=== PATIENT | female | born 2000 | race African-American/Black ===

== ENCOUNTER 2022-05-03 14:59 | Emergency (ER) | payer SELFPAY ==
[2022-05-03 15:01] VITALS: BP 118/75; PULSE 69; RESP 16; TEMP 36.6; O2SAT 98; BMI 35.4
--- NOTE | 2022-05-03 15:03 | USR_ITS ---
PROCEDURE INFORMATION: Exam: US , Transvaginal Exam date and time: 05/03/2022 3:25 PM Age: 21 years old Clinical indication: Lmp or gestational age (in weeks): Unknown; Antepartum complications; Bleeding; Additional info: Vag bleeding, preg LABS AND CLINICAL REPORTS: Last menstrual period start date: Unknown TECHNIQUE: Imaging protocol: Real-time transvaginal obstetrical ultrasound of the maternal pelvis with image documentation. Transvaginal imaging was used for better evaluation of the fetus, adnexa, and/or cervix. COMPARISON: No relevant prior studies available. FINDINGS: Gestation: None seen Uterus: The uterus is retroflexed and measures 7.1 x 4.0 x 5.6 cm. No myometrial mass identified. The endometrial stripe is heterogeneous and thickened measuring up to 19 mm in AP diameter. Minimal fluid in the canal at lower uterine segment/cervix. No visualized gestational sac. Right ovary/adnexa: The right ovary measures 3.6 x 2.5 x 2.2 cm and contains multiple subcentimeter follicles. Normal blood flow identified within the ovary. No adnexal mass. Left ovary/adnexa: The left ovary measures 3.8 x 3.1 x 2.2 cm and contains several subcentimeter follicles. Normal blood flow identified. No adnexal mass. Intraperitoneal space: No free pelvic fluid. US/US OB transvaginal [id number] IMPRESSION: 1. Heterogeneous thickened endometrial stripe with no visualized IUP or ectopic. With a positive test differential includes early IUP too small to visualize versus demise/miscarriage, with occult ectopic not excluded. Correlate clinically and with follow-up ultrasound as needed. 2. Normal ovaries. No adnexal mass or free fluid.
--- NOTE | 2022-05-03 15:15 | W.ED.GENADLT ---
HPI - General Adult General: Chief complaint: Vaginal Bleeding Stated complaint: threatened miscarriage 1st trimester Time Seen by Provider: 05/03/22 15:14 History of Present Illness: Patient is a 21-year-old female G1, P0 with positive test on 03/24/2022 presenting to the emergency room with worsening vaginal bleeding. Patient tells me that she found out she was on . Since then, patient has had intermittent vaginal spotting and bleeding. However over the last few days, patient noticed heavy bleeding with passage of clots. Patient also had irregular cramps. Patient decided come to emergency for evaluation. Of note, patient recently moved here from [place]. Patient denies any fever/chills, flank pain, diarrhea melena/ hematochezia. Patient has no other complaints or new vaginal discharge. Onset: 1 month ago Duration:1 month Location:home Severity:moderate Associated symptoms: Deny chest pain, dyspnea, nausea, rash, palpitations or vomiting Review of Systems Const: Denies: fever(s) or chills Eyes: Denies: change in vision ENMT: Denies: mouth pain Card: Denies: chest pain or palpitations Resp: Denies: dyspnea or non-productive cough GI: Denies: abdominal pain, nausea, vomiting or diarrhea : Reports: other (+vaginal bleeding/pelvic cramps); Denies: dysuria Musc: Denies: extremity pain Skin/Breast: Denies: rash or new lesions Neuro: Denies: weakness in extremities Psych: Reports: other (Normal mood) Cristopher/Lymph: Denies: easy bruising [facility] ED PFSH: Medical History (Updated 05/03/22 @ 15:49 by Beatriz Tapia MD) Anemia Social History (Updated 05/03/22 @ 15:49 by Beatriz Tapia MD) Smoking and tobacco status: never smoked Alcohol intake: never Substance/Drug Use: never Physical Exam Const: COMMON NORMALS: alert HENMT: COMMON NORMALS: atraumatic HEAD & SCALP: atraumatic MOUTH: moist mucous membranes not abnormal Eye: COMMON NORMALS: EOMs intact bilaterally and conjunctivae normal CONJUNCTIVA: Yes conjunctivae normal Neck/C-Spine: COMMON NORMALS: full ROM and supple Resp: COMMON NORMALS: normal respiratory effort and clear to auscultation bilaterally AUSCULTATION: clear to auscultation bilaterally Cardio: COMMON NORMALS: regular rate RATE: regular rate GI: COMMON NORMALS: Soft to palpation and non-tender PALPATION: Yes Soft to palpation OTHER: No focal TTP. NO guarding rebound, guarding, rigidity. No CVA tenderness to percussion. Neg Chandler/Neg McBurney's point tenderness, no suprabupic tenderness to palpation. : OTHER: Pelvic: Exam supervsed by Lida tech: External genitalia wnl. No erythema around cervical os, os open with passage of clots, mild blood in the vaginal vault. No CMT, no adnexal tenderness. No active vaginal bleeding or extravasation Extremity: COMMON NORMALS: full ROM Neuro: SENSORIUM/ORIENTATION: Yes alert MOTOR EXAM: No Abnormal motor strength present and Other motor observations present (no focal motor deficits) Psych: COMMON NORMALS: speech normal SPEECH: Yes normal speech MOOD & AFFECT: Yes euthymic mood Course Vital Signs: Vital signs: Vital Signs Temperature 97.9 F 05/03/22 15:01 Pulse Rate 69 05/03/22 15:01 Respiratory Rate 16 05/03/22 15:01 Blood Pressure 118/75 05/03/22 15:01 Pulse Oximetry 98 05/03/22 15:01 Oxygen Delivery Me thod 05/03/22 15:01 MDM - General Adult Medical Decision Making Patient is a 21-year-old female G1, P0 with positive test on 03/24/2022 presenting to the emergency room with worsening vaginal bleeding passage of clots and irregular cramps. Patient has been having symptoms for the last month now worsening. On exam, patient is hemodynamically stable. Pelvic exam showed blood in the vaginal vault. There appears to be passage of clots to the os. Signs of heavy bleeding or active extravasation. HCG quant is negative. Rho- today, s/p rhogam 300mg. I have given patient follow up with our corrections caseworker to be seen by our outpatient by an OB provider for repeat HCG in 72 hrs. Patient aware of a call from our corrections caseworker to schedule for appointment(s) and verbalizes understanding of the importance of following up. Rx tylenol PRN pain Disposition: Discharge. Patient counseled regarding diagnostic impression, treatment plan. Patient given ED strict return precautions to return for continuation, worsening, or development of new symptoms. Instructed to f/u w/ PCP regarding symptoms today. Patient verbalized understanding of need to follow up in 72 hrs for repeat BHCG. Lab Data : 05/03/22 15:40 05/03/22 15:40 Radiology Impressions Transvaginal US 05/03/22 15:03 IMPRESSION: 1. Heterogeneous thickened endometrial stripe with no visualized IUP or ectopic. With a positive test differential includes early IUP too small to visualize versus demise/miscarriage, with occult ectopic not excluded. Correlate clinically and with follow-up ultrasound as needed. 2. Normal ovaries. No adnexal mass or free fluid. Laboratory Results WBC 7.7 10^3/uL (4.0-10.0) 05/03/22 15:40 RBC 4.05 10^6/uL (4.1-5.3) L 05/03/22 15:40 Hgb 9.5 g/dL (11.5-15.3) L 05/03/22 15:40 Hct 32.2 % (37.0-47.0) L 05/03/22 15:40 MCV 79.5 fl (81-99) L 05/03/22 15:40 MCH 23.5 pg (28.0-34.0) L 05/03/22 15:40 MCHC 29.5 g/dL (30.0-36.0) L 05/03/22 15:40 RDW 15.7 % (12.1-15.1) H 05/03/22 15:40 Plt Count 288 10^3/cmm (130-400) 05/03/22 15:40 MPV 10.8 fL (7.4-10.4) H 05/03/22 15:40 Neut % (Auto) 57.5 % 05/03/22 15:40 Lymph % (Auto) 36.8 % 05/03/22 15:40 Yell % (Auto) 5.1 % 05/03/22 15:40 Eos % (Auto) 0.5 % 05/03/22 15:40 Baso % (Auto) 0.0 % 05/03/22 15:40 Neut # (Auto) 4.41 10^3/uL (1.8-7.7) 05/03/22 15:40 Lymph # (Auto) 2.8 10^3/uL (0.8-4.8) 05/03/22 15:40 Yell # (Auto) 0.4 10^3/uL (0.2-0.9) 05/03/22 15:40 Eos # (Auto) 0.0 10^3/uL (0.0-0.8) 05/03/22 15:40 Baso # (Auto) 0.0 10^3/uL (0.0-0.1) 05/03/22 15:40 Nucleated RBC % (auto) 0 % 05/03/22 15:40 Nucleated RBCs # 0.0 /100WBC 05/03/22 15:40 Sodium 139 mmol/L (136-145) 05/03/22 15:40 Potassium 4.0 mmol/L (3.5-5.1) 05/03/22 15:40 Chloride 103 mmol/L (98-107) 05/03/22 15:40 Carbon Dioxide 26 mmol/L (22-29) 05/03/22 15:40 Anion Gap 14.0 (5-19) 05/03/22 15:40 BUN 11 mg/dL (6-20) 05/03/22 15:40 Creatinine 0.7 mg/dL (0.5-0.9) 05/03/22 15:40 GFR Calculation 125.5 mL/min (90-130) 05/03/22 15:40 Glucose 113 mg/dL (65-115) 05/03/22 15:40 Calculated Osmolality 288 mOsm/kg (285-295) 05/03/22 15:40 Calcium 9.5 mg/dL (8.5-10.5) 05/03/22 15:40 Total Bilirubin 0.2 mg/dL (0.15-1.2) 05/03/22 15:40 AST 24 U/L (0-32) 05/03/22 15:40 ALT 32 U/L (0-33) 05/03/22 15:40 Alkaline Phosphatase 77 U/L (35-105) 05/03/22 15:40 Total Protein 7.8 g/dL (6.6-8.7) 05/03/22 15:40 Albumin 3.9 g/dL (3.5-5.2) 05/03/22 15:40 Globulin 3.9 g/dL (1.3-4.6) 05/03/22 15:40 Lipase 77 U/L (13-60) H 05/03/22 15:40 Ser , Semi-Qnt 0.50 mIU/mL 05/03/22 15:40 Urine Color Rufina (Yellow) 05/03/22 15:19 Urine Appearance Cloudy (CLEAR) 05/03/22 15:19 Urine pH 6.5 (5-7) 05/03/22 15:19 Ur Specific [place] 1.015 (1.005-1.030) 05/03/22 15:19 Urine Protein Trace (Negative) 05/03/22 15:19 Urine Glucose (UA) Norm (Normal) 05/03/22 15:19 Urine Ketones Negative (Negative) 05/03/22 15:19 Urine Blood 3+ (Negative) H 05/03/22 15:19 Urine Nitrate Negative (Negative) 05/03/22 15:19 Urine Bilirubin Neg (Negative) 05/03/22 15:19 Urine Urobilinogen Norm mg/dL (Negative) 05/03/22 15:19 Ur Leukocyte Esterase Negative (Negative) 05/03/22 15:19 Urine RBC Too numerous to cnt /hpf (0-2) H 05/03/22 15:19 Urine WBC 0-4 /hpf (0-5) H 05/03/22 15:19 Ur Squamous Epith Cells 0-4 /hpf (0-5) H 05/03/22 15:19 Amorphous Sediment Not Reportable 05/03/22 15:19 Urine Bacteria Trace /hpf (NONE) 05/03/22 15:19 Blood Type B Negative 05/03/22 15:40 Rho(D) Type Negative 05/03/22 15:40 Imaging Data Other Imaging: Radiologist's impression: [address] [address] Ultrasound Report Signed Patient: Itzel Heredia Unit #: [id number] : 2000 Age/Sex: 21 / F ADM Date: 05/03/22 Loc: ER Room/Bed: Attending Dr: Ordering Provider/Ordering MD: Beatriz Tapia MD Date of Service: 05/03/22 Procedure(s): US OB transvaginal [id number] Accession Number(s): [id number] Report Number: [id number] PROCEDURE INFORMATION: Exam: US , Transvaginal Exam date and time: 05/03/2022 3:25 PM Age: 21 years old Clinical indication: Lmp or gestational age (in weeks): Unknown; Antepartum complications; Bleeding; Additional info: Vag bleeding, preg LABS AND CLINICAL REPORTS: Last menstrual period start date: Unknown TECHNIQUE: Imaging protocol: Real-time transvaginal obstetrical ultrasound of the maternal pelvis with image documentation. Transvaginal imaging was used for better evaluation of the fetus, adnexa, and/or cervix. COMPARISON: No relevant prior studies available. FINDINGS: Gestation:? None seen Uterus: The uterus is retroflexed and measures 7.1 x 4.0 x 5.6 cm. No myometrial mass identified. The endometrial stripe is heterogeneous and thickened measuring up to 19 mm in AP diameter. Minimal fluid in the canal at lower uterine segment/cervix. No visualized gestational sac. Right ovary/adnexa: The right ovary measures 3.6 x 2.5 x 2.2 cm and contains multiple subcentimeter follicles. Normal blood flow identified within the ovary. No adnexal mass. Left ovary/adnexa: The left ovary measures 3.8 x 3.1 x 2.2 cm and contains several subcentimeter follicles. Normal blood flow identified. No adnexal mass. Intraperitoneal space: No free pelvic fluid. US/US OB transvaginal [id number] IMPRESSION: 1. Heterogeneous thickened endometrial stripe with no visualized IUP or ectopic. With a positive test differential includes early IUP too small to visualize versus demise/miscarriage, with occult ectopic not excluded. Correlate clinically and with follow-up ultrasound as needed. 2. Normal ovaries. No adnexal mass or free fluid. ? Dictated By: Rudy Quiros MD Signed By: Rudy Quiros MD Signed Date/Time: 05/03/22 1622 DD/ 1525 Discharge Plan Discharge Patient Disposition: Home Clinical Impression: Vaginal bleeding, Miscarriage, threatened, early Condition: Stable Prescriptions: New acetaminophen 500 mg tablet 500 mg PO Q6H PRN (Reason: pain) 5 Days Qty: 20 0RF Discharge Orders: Discharge ED (Routine); Ordered 05/03/22 Ordered By: Beatriz Tapia Discharge Diet: Advance as tolerated Discharge Activity: Increase activity as tolerated Patient Instructions: Abnormal (Dysfunctional) Uterine Bleeding (ED) Activity Restrictions/Additional Instructions: Our corrections caseworker will have you follow-up with OB in the next few days. You would be expected to have a phone call with our corrections caseworker who will put you on the schedule. You can expect a call from us in the next 2-3 days. If you don't hear from us, call us back in the emergency room at [phone]. Come back if you have any fever/chills, nausea/vomiting, new vaginal discharge or any additional heavy bleeding. Coding Level of Care Code ED Rackman for Chg Fwd Exam Comprehensive
[2022-05-03 16:01] LABS: Eosinophils % 0.5 %; Hematocrit 32.2 % (37.0-47.0); Hemoglobin 9.5 g/dL (11.5-15.3); Lymphocytes # 2.8 10^3/uL (0.8-4.8); Lymphocytes % 36.8 %; Mean Corpuscular HGB Conc 29.5 g/dL (30.0-36.0); Mean Corpuscular Hemoglobin 23.5 pg (28.0-34.0); Mean Corpuscular Volume 79.5 fl (81-99); Mean Platelet Volume 10.8 fL (7.4-10.4); Monocytes # 0.4 10^3/uL (0.2-0.9); Monocytes % 5.1 %; Neutrophils # 4.41 10^3/uL (1.8-7.7); Neutrophils % 57.5 %; Nucleated Red Blood Cells % 0 %; Platelet Count 288 10^3/cmm (130-400); Red Blood Count 4.05 10^6/uL (4.1-5.3); Red Cell Distribution Width 15.7 % (12.1-15.1); White Blood Count 7.7 10^3/uL (4.0-10.0)
[2022-05-03 16:05] LABS: Protein Urine Trace (Negative); Specific Gravity, Urine 1.015 (1.005-1.030); Urine Appearance Cloudy (CLEAR); Urine Color Amber (Yellow); pH Urine 6.5 (5-7)
[2022-05-03 16:06] LABS: Add Urine Culture? Yes; Add Urine Microscopic? YES; Bacteria Urine TRACE /hpf; Bilirubin Urine Neg (Negative); Blood Urine 3+ (Negative); Glucose Urine UA Norm (Normal); Ketones Urine Negative (Negative); Leukocyte Esterase Urine Negative (Negative); Nitrate Urine Negative (Negative); RBC Urine TOO NUMEROUS TO CNT /hpf (0-2); Squamous Epithelial Cell Urine 0-4 /hpf (0-5); Urobilinogen Urine Norm (Negative); WBC Urine 0-4 /hpf (0-5)
[2022-05-03 16:31] LABS: Alanine Aminotransferase 32 U/L (0-33); Albumin Level 3.9 g/dL (3.5-5.2); Alkaline Phosphatase 77 U/L (35-105); Aspartate Amino Transferase 24 U/L (0-32); Blood Urea Nitrogen 11 mg/dL (6-20); Calcium 9.5 mg/dL (8.5-10.5); Carbon Dioxide 26 mmol/L (22-29); Chloride 103 mmol/L (98-107); Globulin 3.9 g/dL (1.3-4.6); Glomerular Filtration Rate 125.5 mL/min (90-130); Glucose 113 mg/dL (65-115); Lipase 77 U/L (13-60); Osmolality Calculated 288 mOsm/kg (285-295); Sodium 139 mmol/L (136-145); Total Bilirubin 0.2 mg/dL (0.15-1.2); Total Protein 7.8 g/dL (6.6-8.7)
[2022-05-03 18:18] VITALS: BP 137/98; PULSE 82; RESP 21; O2SAT 98
--- NOTE | 2022-05-05 13:34 | DCPLANNER ---
Addendum entered by Belen Avila 08/13/22 11:14: Patient had a follow up appointment scheduled with [facility] - patient did not attend appointment. Addendum entered by Belen Avila 05/08/22 14:08: Patient has a follow up appointment scheduled for Saturday, June 04, 2022 at 11:00 with Carey Fernandes with [facility]. Clinic will call patient with appointment information. Original Note: it disaster recovery manager had message to schedule a follow up appointment for patient with [facility]. it disaster recovery manager sent patients information to the front office staff at [facility]. Patients information will be printed and reviewed. Clinic will call patient with appointment information.
== END 2022-05-03 18:40 | disposition home or self-care (01) ==
PROVIDERS: Emergency Provider Emergency Medicine
DX: O20.0 Threatened abortion (principal); Z3A.01 Less than 8 weeks gestation of pregnancy
CPT/HCPCS: 76817; 80053; 81001; 83690; 84702; 85025; 86850; 86900; 87086; 90384; 99284

== ENCOUNTER 2022-05-04 13:19 | Emergency (ER) | payer SELFPAY ==
[2022-05-04 13:26] VITALS: PULSE 65; RESP 18; TEMP 36.7; O2SAT 99; BMI 36.6
--- NOTE | 2022-05-04 13:49 | W.ED.ALLEREA ---
HPI - Allergic Reaction General: Chief complaint: Allergic Reaction Stated complaint: hives and rash on face Time Seen by Provider: 05/04/22 13:44 Source: patient Mode of arrival: ambulatory Limitations: no limitations History of Present Illness: HPI narrative: 21-year-old female presents to the ER today for a rash on her face and chest x24 hours. Patient reports she was seen here yesterday for a miscarriage and was given a RhoGAM injection. Patient was concerned when she noticed a rash last night and this morning on her. Patient reports it does itch. Patient does admit to being exposed to poison nimisha/poison oak in the last several days. Her significant other also has a rash on him that was likely caused by poison nimisha. Patient reports the rash on her face forms a line across her forehead. They have not tried anything for the symptoms at this time. Review of Systems General: Reports: 10 or more systems reviewed and unremarkable except in HPI and below PFSH ED PFSH: Medical History Anemia Social History Smoking and tobacco status: never smoked Alcohol intake: never Physical Exam Const: COMMON NORMALS: no acute distress, average body habitus, patient oriented x3, no limitations, healthy appearing, alert and well nourished HENMT: OTHER: Linear, maculopapular/vesicular rash noted across patient's forehead. Resp: COMMON NORMALS: normal respiratory effort EFFORT & INSPECTION: Yes able to speak in complete sentences Cardio: COMMON NORMALS: regular rate and regular rhythm RATE: regular rate RHYTHM: regular rhythm Extremity: COMMON NORMALS: normal to inspection and full ROM Neuro: COMMON NORMALS: patient oriented x3 SENSORIUM/ORIENTATION: Yes alert Psych: COMMON NORMALS: mental status grossly normal, Normal thought process present and cooperative THOUGHT PROCESS: Normal thought process present Skin: NARRATIVE SKIN EXAM: Linear, maculopapular/vesicular rash noted across patient's forehead. Rash also noted on patient's chest that is maculopapular and 1 patch. Rashes appear consistent with a contact dermatitis. Course ED course: 21-year-old female presents to the ER today for a rash on her chest and face x24 hours. Patient reports she first noticed it yesterday. Patient reports she did get a RhoGAM shot for miscarriage yesterday for she noticed it. Patient also admits to being outside and around possible poison nimisha and poison oak. Patient's significant other also has a rash similar and they thought it was due to poison nimisha. Patient reports it is itchy and she has not tried any thing for it at this time. Rash appears consistent with a contact dermatitis. We will do Kenalog in ER today. Vital Signs: Vital signs: Vital Signs Temperature 98.1 F 05/04/22 13:26 Pulse Rate 65 05/04/22 13:26 Respiratory Rate 18 05/04/22 13:26 Pulse Oximetry 99 05/04/22 13:26 Oxygen Delivery Me thod 05/04/22 13:26 MDM - Allergic Reaction Medical Decision Making 21-year-old female presents to the ER today for a rash on her chest and face x24 hours. Patient reports she first noticed it yesterday. Patient reports she did get a RhoGAM shot for miscarriage yesterday for she noticed it. Patient also admits to being outside and around possible poison nimisha and poison oak. Patient's significant other also has a rash similar and they thought it was due to poison nimisha. Patient reports it is itchy and she has not tried any thing for it at this time. Rash appears consistent with a contact dermatitis versus an allergic reaction to RhoGAM. We will do Kenalog in ER today. Recommended patient get Benadryl for itching at home. Use [id number] topical hydrocortisone cream or calamine lotion. Use hydrocortisone cream sparingly on the face. Follow-up with PCP in 1 week if no improvement. Return to the ER with any new or worsening symptoms. Patient verbalized understanding and was in agreement with the treatment plan. Critical Care Time Critical Care Time: Critical Care Time: No Discharge Plan Discharge Patient Disposition: Home Clinical Impression: Contact dermatitis Qualifiers: Contact dermatitis type: irritant Contact dermatitis trigger: non-food plants Qualified Code(s): L24.7 - Irritant contact dermatitis due to plants, except food Condition: Stable Prescriptions: No Action acetaminophen 500 mg tablet 500 mg PO Q6H PRN (Reason: pain) 5 Days Qty: 20 0RF Discharge Orders: Discharge ED (Routine); Ordered 05/04/22 Ordered By: Yin Olmos Diet: Usual diet Discharge Activity: Resume usual activity Patient Instructions: Opioid Safety Activity Restrictions/Additional Instructions: Apply topical hydrocortisone or calamine lotion for itching. Follow-up with PCP in 1 week if no improvement. Return to the ER if new or worsening symptoms. Coding Level of Care Code ED Cathodic Protection Technician for Alejandra Camacho
[2022-05-04] MEDS: triamcinolone 40 mg/mL SDV IM (14:37)
== END 2022-05-04 14:44 | disposition home or self-care (01) ==
PROVIDERS: Emergency Provider Physician Assistant
DX: L24.7 Irritant contact dermatitis due to plants, except food (principal)
CPT/HCPCS: 96372; 99284; J3301

== ENCOUNTER 2022-08-13 13:52 | Emergency (ER) | payer SELFPAY ==
[2022-08-13 14:41] VITALS: BP 130/67; PULSE 80; RESP 14; TEMP 36.8; O2SAT 100
[2022-08-13 15:22] VITALS: BP 105/65; PULSE 83; RESP 15; TEMP 36.4; O2SAT 100
[2022-08-13 15:44] LABS: Add Urine Microscopic? NO; Charge for UA Resulting for Rev
--- NOTE | 2022-08-13 15:45 | ED_ITS ---
HPI - General Adult General: Chief complaint: General Medical Stated complaint: Thinks she might be Time Seen by Provider: 08/13/22 15:44 History of Present Illness: 22-year-old female comes in today for complaints of no period for the last 2 months. Patient reports breast tenderness and nausea. Patient appears nontoxic. Patient reports no chronic medical problems. Patient reported normal periods up until 2 months ago. Review of Systems : Reports: amenorrhea PFSH ED PFSH: Medical History Anemia Family History Denies family history of Colon cancer Ovarian cancer Diabetes Heart disease Hyperlipidemia Breast cancer Family history of thyroid problem Hypertension Uterine cancer Stroke Physical Exam Const: COMMON NORMALS: alert HENMT: COMMON NORMALS: normocephalic HEAD & SCALP: normocephalic Resp: COMMON NORMALS: normal respiratory effort Cardio: COMMON NORMALS: regular rate RATE: regular rate Neuro: SENSORIUM/ORIENTATION: Yes alert Course Vital Signs: Vital signs: Vital Signs Temperature 97.6 F 08/13/22 15:22 Pulse Rate 83 08/13/22 15:22 Respiratory Rate 15 08/13/22 15:22 Blood Pressure 105/65 08/13/22 15:22 Pulse Oximetry 100 08/13/22 15:22 Oxygen Delivery Me thod 08/13/22 15:22 MDM - General Adult Medical Decision Making 22-year-old female comes in today for concerns of . Patient had not had a period for the last 2 months. Exam is unremarkable. Vital signs are normal. Differential diagnosis includes but not limited to secondary amenorrhea, PCOS, urinary tract infection. Urinalysis and hCG were both unremarkable. No signs of were noted at this time. Recommend patient follow-up with primary care for further instruction and evaluation. Lab Data Laboratory Results Urine Color Yellow (Yellow) 08/13/22 Unknown Urine Appearance Clear (CLEAR) 08/13/22 Unknown Urine pH 8 (5-7) H 08/13/22 Unknown Ur Specific [place] 1.010 (1.005-1.030) 08/13/22 Unknown Urine Protein Neg (Negative) 08/13/22 Unknown Urine Glucose (UA) Norm (Normal) 08/13/22 Unknown Urine Ketones Negative (Negative) 08/13/22 Unknown Urine Blood Neg (Negative) 08/13/22 Unknown Urine Nitrate Negative (Negative) 08/13/22 Unknown Urine Bilirubin Neg (Negative) 08/13/22 Unknown Prot Sulfosalicylic Acd Negative (Negative) 08/13/22 Unknown Urine Urobilinogen Norm mg/dL (Negative) 08/13/22 Unknown Ur Leukocyte Esterase Negative (Negative) 08/13/22 Unknown Urine HCG, Qual Negative (Negative) 08/13/22 Unknown Discharge Plan Discharge Patient Disposition: Home Clinical Impression: Secondary physiologic amenorrhea Condition: Stable Prescriptions: No Action amoxicillin-pot clavulanate 875-125 mg tablet 1 tab PO BID 10 Days Qty: 20 0RF fluticasone propionate [Children's Flonase Allergy Rlf] 50 mcg/actuation spray,suspension 2 spray intranasal DAILY Qty: 16 0RF Rx Instructions: administer into each nostril cetirizine [Zyrtec] 10 mg tablet 10 mg PO DAILY Qty: 30 0RF Discharge Orders: Discharge ED (Routine); Ordered 08/13/22 Ordered By: Magan Cavazos Activity Restrictions/Additional Instructions: Follow-up with primary care for further evaluation and treatment. Return to ER for severe pain, fever greater than 100.4, abnormal vaginal discharge, or new concerns. Coding Level of Care Code ED Laboratory Animal Care Veterinarian for Alejandra Camacho
[2022-08-13 16:06] LABS: Bilirubin Urine Neg (Negative); Blood Urine Neg (Negative); Glucose Urine UA Norm (Normal); Ketones Urine Negative (Negative); Leukocyte Esterase Urine Negative (Negative); Nitrate Urine Negative (Negative); Protein Urine Neg (Negative); Sulfosalicylic Acid Urine Negative (Negative); Urine Appearance Clear (CLEAR); Urine Color Yellow (Yellow); Urobilinogen Urine Norm (Negative); pH Urine 8 (5-7)
== END 2022-08-13 17:15 | disposition home or self-care (01) ==
PROVIDERS: Emergency Provider Nurse Practitioner Family
DX: N91.1 Secondary amenorrhea (principal); Z32.02 Encounter for pregnancy test, result negative
CPT/HCPCS: 81003; 81025; 99282

== ENCOUNTER → 2022-08-20 10:30 | Outpatient (BNVA) | payer SELFPAY | PROVIDERS: Visit Provider Nurse Practitioner Women's Health | DX: Z00.00 Encounter for general adult medical examination without abnormal findings (principal); N91.1 Secondary amenorrhea | CPT/HCPCS: 81000; 81025; 84702 ==

== ENCOUNTER → 2022-09-03 09:00 | Outpatient (BNVA) | payer SELFPAY | PROVIDERS: Visit Provider Nurse Practitioner Women's Health | DX: Z01.411 Encounter for gynecological examination (general) (routine) with abnormal findings (principal); N91.1 Secondary amenorrhea | CPT/HCPCS: 82670; 82728; 83001; 83498; 83540; 84146; 84439; 84443; 85025 ==

== ENCOUNTER 2022-10-04 15:34 | Emergency (ER) | payer SELFPAY ==
[2022-10-04 15:36] VITALS: BP 134/90; PULSE 84; RESP 16; TEMP 36.6; O2SAT 98
--- NOTE | 2022-10-04 16:00 | W.ED.BACK ---
HPI - Back Pain/Injury General: Chief Complaint: Back Pain/Injury Stated Complaint: back injury Time Seen by Provider: 10/04/22 15:46 Source: patient Mode of arrival: wheelchair Limitations: no limitations History of Present Illness: Patient is a 22-year-old female presents to ED today for evaluation of back pain. Patient states she initially hurt her back earlier this week on Thursday after lifting a heavy patient at work (reports she heard a pop ). She states she was seen at a [place] facility/clinic because of the Worker's Comp. injury but states I am not sure if they even filed it . She states she was told to treat symptoms conservatively which she has been doing with oral ibuprofen without much relief. She states she was told to go back to work and is having trouble at work secondary to pain. States pain sometimes radiates down her right leg. Denies numbness, tingling, loss of sensation. No color or temperature changes. Denies saddle anesthesia or bowel or bladder dysfunction MD elicited complaint: back pain and back injury Pertinent past history: recent trauma Onset (ago): day(s) Timing: constant Severity: moderate Similar Symptoms Previously: No Location: lumbar spine and right lower back Radiation: right leg below the knee Exacerbating factors: movement, walking and lifting Relieving factors: none Context: while lifting Associated symptoms: Reports no associated symptoms; Deny abdominal pain, chills, dysuria, fatigue, fever(s) or hematuria Treatments prior to arrival: NSAIDS Work related injury: Yes Review of Systems Const: Denies: fever(s), chills, body aches, fatigue or malaise Card: Denies: chest pain Resp: Denies: dyspnea GI: Denies: abdominal pain : Denies: flank pain, dysuria or hematuria Musc: Reports: back pain; Denies: neck pain, extremity pain, extremity swelling, joint pain or joint swelling Skin/Breast: Denies: rash Neuro: Denies: headache(s), numbness in extremities, weakness in extremities or sensory changes PFSH ED PFSH: Medical History Anemia Family History Denies family history of Colon cancer Ovarian cancer Diabetes Heart disease Hyperlipidemia Breast cancer Family history of thyroid problem Hypertension Uterine cancer Stroke Physical Exam Const: COMMON NORMALS: no acute distress, patient oriented x3, no limitations and alert NUTRITIONAL APPEARANCE: obese ORIENTATION/CONSCIOUSNESS: Yes awake, Yes oriented to person, Yes oriented to place and Yes oriented to time HENMT: COMMON NORMALS: normocephalic and atraumatic HEAD & SCALP: normal to inspection, normocephalic and atraumatic : COMMON NORMALS: Yes no CVA tenderness BLADDER/KIDNEY EXAM: Yes no CVA tenderness Back/Pelvis: COMMON NORMALS: no CVA tenderness THORACIC SPINE/UPPER BACK: Yes normal to inspection, Yes thoracic ROM normal, No thoracic spinal tenderness, No paraspinal muscle tenderness and No paraspinal muscle spasm LUMBAR SPINE/LOWER BACK: Yes ROM limited, Yes pain with ROM, Yes lumbar spinal tenderness, Yes paraspinal muscle tenderness, No paraspinal muscle spasm, No mass present and Yes straight leg raise negative bilaterally PELVIS: Yes buttocks normal SACROILIAC JOINTS: Yes SI joints normal SACRUM: no tenderness COCCYX: no tenderness Extremity: COMMON NORMALS: normal to inspection, full ROM, capillary refill normal, no joint enlargement, no clubbing, cyanosis or edema, no calf tenderness and no pedal edema GENERAL: Yes normal exam except as noted Neuro: COMMON NORMALS: patient oriented x3, moves all extremities, no focal motor deficits and no sensory deficits noted SENSORIUM/ORIENTATION: Yes alert, Yes oriented to person, Yes oriented to place and Yes oriented to time MOTOR EXAM: 5/5 motor strength present throughout Skin: COMMON NORMALS: no rashes or lesions noted GENERAL SKIN EXAM: no rashes or lesions noted Course Vital Signs: Vital signs: Vital Signs Temperature 97.9 F 10/04/22 15:36 Pulse Rate 84 10/04/22 15:36 Respiratory Rate 16 10/04/22 15:36 Blood Pressure 134/90 10/04/22 15:36 Pulse Oximetry 98 10/04/22 15:36 Oxygen Delivery Me thod 10/04/22 15:36 MDM - Back Pain/Injury Medical Decision Making Patient states her back pain feels better. She has no red flags on history or physical exam. Recommend she follow-up with the clinic that started her Worker's Comp. paperwork. Labs Radiology Impressions Lumbar Spine X-Ray 10/04/22 16:14 IMPRESSION: No fracture or acute osseous abnormality. Discharge Plan Discharge Patient Disposition: Home Clinical Impression: Low back strain Qualifiers: Encounter type: initial encounter Qualified Code(s): S39.012A - Strain of muscle, fascia and tendon of lower back, initial encounter Condition: Stable Prescriptions: New methocarbamol 500 mg tablet 1,000 mg PO Q8H Qty: 30 0RF Medrol ([place]) 4 mg tablets,dose pack See Rx Instructions .ROUTE .COMPLEX Qty: 21 0RF Rx Instructions: orally per package directions No Action medroxyprogesterone 10 mg tablet 10 mg PO DAILY Qty: 10 0RF letrozole 2.5 mg tablet 2.5 mg PO DAILY 5 Days Qty: 5 0RF Rx Instructions: begin between days 2 and 7 of menstrual cycle Discharge Orders: Discharge ED (Routine); Ordered 10/04/22 Ordered By: Pamela Mathis Activity Restrictions/Additional Instructions: As we discussed please follow-up with the [facility] clinic this week. Stand Alone Forms: Work/School Release Coding Level of Care Code ED Cash Reconciliation Specialist for Alejandra Camacho
--- NOTE | 2022-10-04 16:11 | PC.NURSE ---
Discharge entered on 1607 was entered on the wrong patient, not meant for this patient.
--- NOTE | 2022-10-04 16:14 | XRR_ITS ---
PROCEDURE INFORMATION: Exam: XR Lumbosacral Spine Exam date and time: 10/04/2022 4:29 PM Age: 22 years old Clinical indication: Injury or trauma; Fall; Blunt trauma (contusions or hematomas) TECHNIQUE: Imaging protocol: Radiologic exam of the lumbosacral spine. Views: 2 or 3 views. COMPARISON: US OB <=14 wk fetus w transvag 05/03/2022 3:25 PM FINDINGS: Bones/joints: AP view demonstrates minimal scoliosis. Very minimal retrolisthesis of L5 on S1 on the lateral view, which may be positional. Lumbar vertebral body heights appear maintained, as do disc spaces. No fracture or compression deformity. Visualized sacrum appears unremarkable.. Soft tissues: Unremarkable. XR/XR lumbar spine 2-3V* [id number] IMPRESSION: No fracture or acute osseous abnormality.
[2022-10-04] MEDS: orphenadrine 30 mg/mL Inj 2 mL 60 MG IM (16:25)
[2022-10-04] MEDS: dexamethasone 10 mg/mL INJ 8 MG IM (16:26)
[2022-10-04 17:12] VITALS: BP 128/76; PULSE 88; RESP 16; O2SAT 99
== END 2022-10-04 17:12 | disposition home or self-care (01) ==
PROVIDERS: Emergency Provider Physician Assistant
DX: S39.012A Strain of muscle, fascia and tendon of lower back, initial encounter (principal); X50.0XXA Overexertion from strenuous movement or load, initial encounter; Y93.F2 Activity, caregiving, lifting; Y99.0 Civilian activity done for income or pay
CPT/HCPCS: 72100; 96372; 99284; J1100; J2360

== ENCOUNTER → 2023-08-21 10:57 | Outpatient (BNVA) | payer SELFPAY | PROVIDERS: Visit Provider Obstetrics & Gynecology | DX: N92.6 Irregular menstruation, unspecified (principal) | CPT/HCPCS: 84702 ==

== ENCOUNTER 2025-05-06 13:22 | Emergency (ER) | payer SELFPAY ==
[2025-05-06 13:26] VITALS: BP 166/68; PULSE 75; RESP 20; TEMP 36.7; O2SAT 94; BMI 41.6
--- NOTE | 2025-05-06 15:58 | ED_ITS ---
HPI - Abdominal Pain 2 General: Chief Complaint: Abdominal Pain Stated Complaint: N / Abd pain Time Seen by Provider: 05/06/25 15:37 History of Present Illness: 24-year-old female presents emergency ro om complaining of abdominal pain she has recently seen at another outside hospital thought to have a pneumonia/bronchitis and was started on doxycycline. Her symptoms are worse after she takes a doxycycline and then begin to improve. She do not especially bad if she does not eat with the doxycycline. Associated Symptoms: Denies chills, dysuria and fever(s) Related Data Home Medications ?Medication ?Instructions ?Recorded ?Confirmed doxycycline hyclate 100 mg tablet 100 mg PO BID 05/06/25 promethazine-DM 6.25 mg-15 mg/5 mL 5 ml PO Q6H PRN Cou gh 05/06/25 05/06/25 oral syrup Previous Rx's ?Medication ?Instructions ?Recorded levofloxacin 750 mg tablet 750 mg PO DAILY 7 days #7 t abs 05/06/25 Allergies Allergy/AdvReac Type Severity Reaction Status Date / Time No Known Allergies Allergy Verified 05/06/25 13:30 Review of Systems 2 Const: Denies: fever(s) or chills Card: Denies: chest pain Resp: Denies: dyspnea GI: Denies: abdominal pain : Denies: dysuria, urinary frequency or urinary urgency Musc: Denies: neck pain or back pain Skin/Breast: Denies: rash PFSH ED 2 PFSH: Medical History Anemia Family History Denies family history of Colon cancer Ovarian cancer Diabetes Heart disease Hyperlipidemia Breast cancer Family history of thyroid problem Hypertension Uterine cancer Stroke Social History Substance/Drug Use: never Physical Exam 2 Const: GENERAL APPEARANCE: cooperative ORIENTATION/CONSCIOUSNESS: Yes awake, Yes oriented to person, Yes oriented to place and Yes oriented to time HENMT: COMMON NORMALS: normocephalic, atraumatic and hearing grossly normal bilaterally HEAD & SCALP: normocephalic and atraumatic Resp: COMMON NORMALS: normal respiratory effort, No retractions, No use of accessory muscles and clear to auscultation bilaterally AUSCULTATION: clear to auscultation bilaterally Cardio: COMMON NORMALS: regular rate, regular rhythm and No murmurs present (Cardio) RATE: regular rate RHYTHM: regular rhythm GI: COMMON NORMALS: Soft to palpation and No hepatosplenomegaly present A USCULTATION: Yes normoactive bowel sounds PALPATION: Yes Soft to palpation, No Tenderness to palpation present (GI), No Guarding due to palpation present (GI) and Yes No hepatosplenomegaly present Extremity: COMMON NORMALS: normal to inspection, capillary refill normal, no clubbing, cyanosis or edema, no calf tenderness and no pedal edema Neuro: SENSORIUM/ORIENTATION: Yes oriented to person, Yes oriented to place and Yes oriented to time Skin: COMMON NORMALS: no rashes or lesions noted GENERAL SKIN EXAM: no rashes or lesions noted Course 2 Vital Signs: Vital signs: Vital Signs Temperature 98.0 F 05/06/25 13:26 Pulse Rate 72 05/06/25 17:26 Respiratory Rate 18 05/06/25 17:26 Blood Pressure 130/75 05/06/25 17:26 Pulse Oximetry 100 05/06/25 17:26 Oxygen Delivery Me thod Room Air 05/06/25 13:26 MDM - Abdominal Pain Medical Decision Making Exam labs essentially normal. White count slightly elevated consistent with her known diagnosis. Suspect her symptoms are largely due to side effects from the doxycycline GI irritation. Discussed this with her. She is actually feeling much better now we will discharge her home with levofloxacin and have her stop the doxycycline. Follow-up with her primary care doctor. Medical Records I reviewed the patient's medical records. Lab Data I reviewed the patient's lab results. 05/06/25 15:51 05/06/25 15:51 Labs/Radiology: Laboratory Results WBC 11.95 10^3/uL (3.29-11.43) H 05/06/25 15:51 RBC 4.40 10^6/uL (3.85-5.65) 05/06/25 15:51 Hgb 10.70 g/dL (11.27-16.99) L 05/06/25 15:51 Hct 35.3 % (36-47) L 05/06/25 15:51 MCV 80.2 fl (85-98) L 05/06/25 15:51 MCH 24.3 pg (27-33) L 05/06/25 15:51 MCHC 30.3 g/dL (30-55) 05/06/25 15:51 RDW 15.2 % (12.1-15.1) H 05/06/25 15:51 Plt Count 285 10^3/cmm (157-399) 05/06/25 15:51 MPV 10.6 fL (7.4-10.4) H 05/06/25 15:51 Neut % (Auto) 65.9 % 05/06/25 15:51 Lymph % (Auto) 26.4 % 05/06/25 15:51 [place] % (Auto) 6.3 % 05/06/25 15:51 Eos % (Auto) 0.8 % 05/06/25 15:51 Baso % (Auto) 0.3 % 05/06/25 15:51 Neut # (Auto) 7.89 10^3/uL (1.8-7.7) H 05/06/25 15:51 Lymph # (Auto) 3.2 10^3/uL (0.8-4.8) 05/06/25 15:51 [place] # (Auto) 0.8 10^3/uL (0.2-0.9) 05/06/25 15:51 Eos # (Auto) 0.1 10^3/uL (0.0-0.8) 05/06/25 15:51 Baso # (Auto) 0.0 10^3/uL (0.0-0.1) 05/06/25 15:51 Nucleated RBC % (auto) 0 % 05/06/25 15:51 Nucleated RBCs # 0.0 /100WBC 05/06/25 15:51 Sodium 138 mmol/L (136-145) 05/06/25 15:51 Potassium 3.8 mmol/L (3.5-5.1) 05/06/25 15:51 Chloride 103 mmol/L (98-107) 05/06/25 15:51 Carbon Dioxide 24 mmol/L (22-29) 05/06/25 15:51 Anion Gap 14.8 (5-19) 05/06/25 15:51 BUN 11 mg/dL (6-20) 05/06/25 15:51 Creatinine 0.5 mg/dL (0.5-0.9) 05/06/25 15:51 GFR Calculation 180.5 mL/min (90-130) H 05/06/25 15:51 Glucose 107 mg/dL (65-115) 05/06/25 15:51 Calculated Osmolality 286 mOsm/kg (285-295) 05/06/25 15:51 Calcium 9.3 mg/dL (8.5-10.5) 05/06/25 15:51 Total Bilirubin 0.2 mg/dL (0.15-1.2) 05/06/25 15:51 AST 14 U/L (0-32) 05/06/25 15:51 ALT 20 U/L (0-33) 05/06/25 15:51 Alkaline Phosphatase 79 U/L (35-105) 05/06/25 15:51 Total Protein 7.9 g/dL (6.6-8.7) 05/06/25 15:51 Albumin 4.1 g/dL (3.5-5.2) 05/06/25 15:51 Globulin 3.8 g/dL (1.3-4.6) 05/06/25 15:51 Lipase 45 U/L (13-60) 05/06/25 15:51 Urine Color Yellow (Yellow) 05/06/25 16:49 Urine Appearance Clear (CLEAR) 05/06/25 16:49 Urine pH 6.0 (5-7) 05/06/25 16:49 Ur Specific [place] 1.022 (1.005-1.030) 05/06/25 16:49 Urine Protein Negative (Negative) 05/06/25 16:49 Urine Glucose (UA) Negative (Normal) 05/06/25 16:49 Urine Ketones Negative (Negative) 05/06/25 16:49 Urine Blood Negative (Negative) 05/06/25 16:49 Urine Nitrate Negative (Negative) 05/06/25 16:49 Urine Bilirubin Negative (Negative) 05/06/25 16:49 Urine Urobilinogen 1.0 mg/dL (Negative) 05/06/25 16:49 Ur Leukocyte Esterase Negative (Negative) 05/06/25 16:49 Urine RBC 0-2 /hpf (0-2) 05/06/25 16:49 Urine WBC 0-5 /hpf (0-5) 05/06/25 16:49 Ur Squamous Epith Cells 6-10 /hpf (0-5) 05/06/25 16:49 Amorphous Sediment Not Reportable 05/06/25 16:49 Urine Bacteria None seen /hpf (NONE) 05/06/25 16:49 Hyaline Casts 0.40 /lpf 05/06/25 16:49 All radiology interpretation(s) finalized by discharge Discharge Plan Discharge Patient Disposition: Home Clinical Impression: Bronchitis Condition: Stable Prescriptions: New levofloxacin 750 mg tablet 750 mg PO DAILY 7 Days Qty: 7 0RF No Action promethazine-DM 6.25-15 mg/5 mL syrup 5 ml PO Q6H PRN (Reason: Cough) doxycycline hyclate 100 mg tablet 100 mg PO BID Discharge Orders: Discharge ED (Routine); Ordered 05/06/25 Ordered By: Bharath Jolley Discharge Diet: Usual diet Discharge Activity: Resume usual activity Patient Instructions: Opioid Safety, Pain Management, Patient Portal & [place] Instructions Activity Restrictions/Additional Instructions: Thank you for choosing [facility] for your healthcare needs today. It is very important that you follow up as instructed or that you return to the Emergency Department should you have concerns or if your condition changes or worsens in any way. Emergency department visits are focused on emergent conditions, in some cases you may require further evaluation on an outpatient basis. You were seen in the emergency room with concerns about stomach upset. Your laboratory tests are normal including your lipase. Recommend that you stop the doxycycline and instead take levofloxacin 750 once a day for 7 days. Follow-up with your primary care doctor if not improving (Please note that included in your discharge packet is information concerning opioid safety and pain management. This information is given to all patients were discharged from the ER regardless of their discharge diagnosis or the medicines they usually take or are prescribed.) Print Language: Slovenian Coding Level of Care Code ED Residential Real Estate Agent for Alejandra Camacho
[2025-05-06 16:08] LABS: Hematocrit 35.3 % (36-47); Hemoglobin 10.70 g/dL (11.27-16.99); Mean Corpuscular HGB Conc 30.3 g/dL (30-55); Mean Corpuscular Hemoglobin 24.3 pg (27-33); Mean Corpuscular Volume 80.2 fl (85-98); Nucleated Red Blood Cells % 0 %; Platelet Count 285 10^3/cmm (157-399); Red Blood Count 4.40 10^6/uL (3.85-5.65); White Blood Count 11.95 10^3/uL (3.29-11.43)
[2025-05-06 16:23] LABS: Alanine Aminotransferase 20 U/L (0-33); Albumin Level 4.1 g/dL (3.5-5.2); Alkaline Phosphatase 79 U/L (35-105); Anion Gap 14.8 (5-19); Aspartate Amino Transferase 14 U/L (0-32); Blood Urea Nitrogen 11 mg/dL (6-20); Calcium 9.3 mg/dL (8.5-10.5); Carbon Dioxide 24 mmol/L (22-29); Chloride 103 mmol/L (98-107); Creatinine Clr Calc Pharmacy 199.3922; Globulin 3.8 g/dL (1.3-4.6); Glucose 107 mg/dL (65-115); Lipase 45 U/L (13-60); Osmolality Calculated 286 mOsm/kg (285-295); Potassium 3.8 mmol/L (3.5-5.1); Sodium 138 mmol/L (136-145); Total Protein 7.9 g/dL (6.6-8.7)
[2025-05-06 17:02] LABS: Glucose Urine UA Negative (Normal); Nitrate Urine Negative (Negative); Specific Gravity, Urine 1.022 (1.005-1.030)
[2025-05-06 17:08] LABS: Add Urine Microscopic? YES
[2025-05-06 17:26] VITALS: BP 130/75; PULSE 72; RESP 18; O2SAT 100
== END 2025-05-06 17:27 | disposition home or self-care (01) ==
PROVIDERS: Emergency Provider Family Medicine
DX: J40 Bronchitis, not specified as acute or chronic (principal)
CPT/HCPCS: 36415; 80053; 81001; 83690; 85025; 96360; 99284; J7030